=== PATIENT | female | born 1965 | race Caucasian/White ===

== ENCOUNTER 2024-09-22 16:33 | Outpatient (CLI) | payer OTHER, SELFPAY ==
[2024-09-22 16:53] LABS: Basophils Absolute Auto 0.1 K/mm3 (0.0-0.1); Basophils Percent Auto 0.9 % (0.2-1.2); Eosinophils Absolute Auto 0.2 K/mm3 (0-0.3); Eosinophils Percent Auto 2.3 % (0-4.4); Hematocrit 41.1 % (37.0-47.0); Immature Granulocyte Absolute 0.02 K/mm3 (0.00-0.031); Immature Granulocyte Percent A 0.3 % (0-0.5); Mean Corpuscular HGB Conc 31.6 g/dl (32-36); Mean Corpuscular Hemoglobin 31.3 pg (26-34); Mean Corpuscular Volume 98.8 fl (80-100); Mean Platelet Volume 11.1 fl (7.4-10.4); Monocytes Absolute Auto 0.5 K/mm3 (0.1-0.6); Monocytes Percent Auto 6.8 % (2.6-8.5); Neutrophils Absolute Auto 3.6 K/mm3 (1.3-6.7); Neutrophils Percent Auto 54.7 % (45.5-73.1); Platelet Count Result 233 k/mm3 (150-375); Red Blood Count 4.16 M/mm3 (4.2-5.4); Red Cell Distribution Width 13.6 % (11.5-14.5); White Blood Count 6.6 K/mm3 (4.5-10.0)
[2024-09-22 17:07] LABS: Add Urine Microscopic? YES; Appearance Urine Clear (Clear); Bacteria Urine None Seen /hpf; Bilirubin Urine Negative (Negative); Blood Urine Trace (Negative); Color Urine Yellow (Yellow); Glucose Urine UA Negative (Negative); Ketones Urine Negative (Negative); Leukocyte Esterase Ur Negative LEU/UL (Negative); Nitrate Urine Negative (Negative); Non Pathogenic Casts 0-2; Protein Urine Negative (Negative); Specific Grav Ur 1.017 (1.001-1.035); Squamous Epithelial Cell Urine Few /hpf (Few); Urobilinogen Urine 0.2 mg/dL (<2.0); WBC Urine 0-5 /hpf (0-3)
[2024-09-22 17:10] LABS: Anion Gap 10 mmol/L (4-12); Blood Urea Nitrogen 13 mg/dL (7-17); Carbon Dioxide 29 mmol/L (22-30); Chloride 104 mmol/L (98-107); Estimated Glomerular Filt Rate > 60; Glucose 117 mg/dL (65-110); Potassium 3.7 mmol/L (3.4-5.0); Sodium 143 mmol/L (137-145)
== END 2024-09-22 16:34 | disposition home or self-care (01) ==
LOC: ANHLAB 16:36
PROVIDERS: Visit Provider Orthopaedic Surgery
DX: R53.83 Other fatigue (principal); I10 Essential (primary) hypertension
CPT/HCPCS: 36415; 80048; 81001; 85025

== ENCOUNTER 2024-09-23 07:20 | Outpatient (CLI) | payer OTHER, SELFPAY ==
--- NOTE | 2024-09-23 08:00 | ECG_ITS ---
Test Date: 2024-09-23 08:06:22 Measurements Intervals [place] Rate: 63 P: 12 DE: 101 QRS: 54 QRSD: 91 T: 52 QT: 410 QTc: 420 Interpretive Statements SINUS RHYTHM WITH SHORT DE INTERVAL BORDERLINE ECG No previous ECG available for comparison Electronically Signed On 09-23-2024 08:07:27 CDT by Bereket Lindsay D.O.
== END 2024-09-23 07:21 | disposition home or self-care (01) ==
LOC: ANHCARD 07:22
PROVIDERS: Visit Provider Orthopaedic Surgery
DX: R53.83 Other fatigue (principal); I10 Essential (primary) hypertension; R94.31 Abnormal electrocardiogram [ECG] [EKG]
CPT/HCPCS: 93005

== ENCOUNTER 2024-09-27 13:26 | Outpatient (CLI) | payer OTHER, SELFPAY ==
[2024-09-27 15:55] LABS: Urine Cotinine NEGATIVE
[2024-09-27 16:00] LABS: Albumin Level 4.9 g/dL (3.5-5.1)
[2024-09-27 16:01] LABS: Hemoglobin A1C 5.4 % (<5.7)
[2024-09-27 16:09] LABS: Partial Thromboplastin Time 26.4 Seconds (22.3-36.8); Prothrombin Time 13.5 Seconds (11.1-14.7)
[2024-09-27 16:58] LABS: MRSA (PCR) NOT DETECTED (NOT DETECTE)
== END 2024-09-27 13:27 | disposition home or self-care (01) ==
LOC: ANHSURGERY 13:32
PROVIDERS: Visit Provider Orthopaedic Surgery
DX: M16.11 Unilateral primary osteoarthritis, right hip (principal); Z01.818 Encounter for other preprocedural examination
CPT/HCPCS: 80307; 82040; 83036; 85610; 85730; 86850; 86900; 86901; 87641

== ENCOUNTER 2024-10-04 01:41 | Day surgery (SDC) | payer OTHER, SELFPAY ==
[2024-09-27 14:09] VITALS: BP 114/57; PULSE 100; RESP 16; TEMP 37.1; O2SAT 100; BMI 26.2
--- NOTE | 2024-09-27 15:05 | PC.NURSE ---
Report to the Outpatient Waiting Room, entrance under the green pavilion located off [facility], at time _0600am on date __10/04/24 . Planned Procedure Time: 0730am .? Time changes happen often and if your time is changed the preop area will call you the afternoon before. - You and your visitor will be asked to self-screen and do not enter if you have any COVID symptoms. Please call surgeon if you need to reschedule. - A mask is optional within the hospital at this time. Patients may have clear liquids (water, carbonated beverages, clear teas, apple juice) until 3 hours prior to surgery with a maximum of 20 ounces. - No food from midnight until time of surgery and no smoking, or chewing tobacco (or any form of nicotine). No chewing gum, candy or mints.(0430am) Take only the following medications with a SIP of water on the morning of surgery: ___Tylenol if needed DO NOT STOP ANY OF YOUR OTHER PRESCRIPTION MEDICATIONS PRIOR TO SURGERY EXCEPT THE FOLLOWING Hold all vitamins and supplements for 3 days per anesthesiologist.Date to take last dose 09/30/24 Medications to discontinue per physician None Date to take last dose___None Please no make-up, nail mongolian, hairspray, perfume, deodorant, or body powder the day of surgery.? No jewelry (including any body piercings) or valuables the day of surgery, leave them at home.? Please take a shower or bath the night before, or the morning of, surgery with an antibacterial soap.? Wear comfortable, loose fitting clothing.? HIBICLEANSE SCRUB to quill picking machine operator at Pharmacy and shower with as ordered and explained. - Jewelry must be removed prior to entering the operating room.? Rings and piercings that are not removed may be cut off. - The hospital will not accept responsibility for valuables.? - Please leave all valuables, including medications, at home the day of surgery. If you are going home after surgery, a licensed tank wagon driver must drive you home.? - NO public transportation without another adult if you receive anesthesia. - We recommend that an adult stay with you for 24 hours following discharge. - We also recommend that you do not drive, make important decision, drink alcoholic beverages, or take any drugs that were not prescribed by your health care provider for at least 24 hours after your discharge time. Follow any additional instructions given to you from your surgeon. Telephone instructions given to __Patient and and asked if any additional questions and then verbalized understanding. Patient advised to call surgeon office or pre surgery nurse liaison [phone] if any additional questions.
--- NOTE | 2024-10-03 13:14 | WPDANESEPPF ---
Anes - Initial Pre Proc Eval Procedure: Operation Date: 10/04/24 07:30 Proposed Procedures p Right Total Hip Arthroplasty - Abdiel Rabago MD Date/Time: 10/03/24 13:14 Surgeon: Abdiel Rabago MD Pre Op Diagnosis: right hip djd Patient Data Age: 59 Gender: F Height: 1.65 m Weight: 71.5 kg Last Vital Signs Temp 98.7 F 09/27/24 14:09 Pulse 100 09/27/24 14:09 Resp 16 09/27/24 14:09 BP 114/57 L 09/27/24 14:09 Pulse Ox 100 09/27/24 14:09 O2 Del Method Room Air 09/27/24 14:09 Allergies Allergy/AdvReac Type Severity Reaction Status Date / Time caffeine w aspirin AdvReac swollen Uncoded 09/27/24 14:04 Home Medications ?Medication ?Instructions ?Recorded ?Confirmed ?Type chlorhexidine gluconate 4 % 1 applic topical ONCE #237 mL 09/27/24 09/27/24 Rx topical liquid (Hibiclens) Patient hx anesthesia problems: none Family hx anesthesia problems: none Results Review: All pre-operative results and documents have been reviewed as part of the pre-operative evaluation. [facility] Past Medical History Medical History Degenerative joint disease of right hip Trochanteric bursitis of left hip Surgical History Surgical History History of total left hip arthroplasty 2022- [place] Social History Social History Social History: caffeine use Smoking status: Never smoker Alcohol intake: current Substance use: never Occupation/Education: occupation Additional occupation/education comments: house Gender identity (if verbalized by the patient): Female Anes - Eval Final PreProcedure Day of Procedure 10/03/24 13:14 Patient weight: normal Heart: regular rate and rhythm Lungs: clear to auscultation Airway: Mallampati scale class II Neurological: alert and oriented Last oral intake: >/= 8 hours ASA classification: II Emergent: no Anesthetic plan: proceed Anesthesia type and monitoring: general ETT and standard monitoring Results Review: All pre-operative results and documents have been reviewed as part of the pre-operative evaluation. Informed Consent: The patient's anesthetic plan and its attendant risks and benefits were discussed with the patient/family/POA. Questions were solicited and answers provided to the satisfaction of the patient/family/POA.
[2024-10-04] VITALS (20 sets, daily range): BP systolic 96–133; BP diastolic 50–79; PULSE 57–95; RESP 10–18; TEMP 35.8–37.1; O2SAT 88–100
--- NOTE | ~2024-10-04 | XR_ITS ---
EXAMINATION: XR hip RT 1V DATE: 10/04/2024 11:23 INDICATION: Status post right total hip arthroplasty TECHNIQUE: Anteroposterior view of the right hip were obtained. COMPARISON: None. FINDINGS: Noncemented right total hip arthroplasty which appears well seated in near-anatomic alignment on sing le provided frontal projection. No fracture. Mild osteoarthritis at the right sacroiliac joint. Expec abiola small amount of soft tissue gas at the operative bed. IMPRESSION: 1. Expected appearance of a right total hip arthroplasty, negative for postoperative purposes. Reviewed, dictated and finalized at location A. IMPRESSION: 1. Expected appearance of a right total hip arthroplasty, negative for postoper ative purposes.
[2024-10-04] MEDS: TRANEXAMIC ACID 1,000MG/ISO100 1,000 MG/100 ML BAG 200 MG IVPB (07:15)
[2024-10-04] MEDS: LACTATED RINGERS 1,000 ML 30 ML IV CONT ×3 (07:15→11:34)
[2024-10-04] MEDS: ACETAMINOPHEN 500 MG TABLET 1000 MG PO (07:15)
--- NOTE | 2024-10-04 07:18 | WPDHPUPDATE1 ---
History and Physical Update Update Date/Time: 10/04/24 07:18 History and Physical has been reviewed, including an updated exam of the patient. There are NO changes in the patient's condition. Risks, benefits, and alternatives have been discussed and questions answered. Patient agrees to proceed with procedure.
[2024-10-04] MEDS: ceFAZolin 2 GM/D5W 50 ML 2 GM/50 ML BAG IVPB ×2 (07:34→16:45)
[2024-10-04] MEDS: SODIUM CHLORIDE 0.9% IV 37.7 ML, MORPHINE SULFATE INJ (*CRX) 2 MG, ROPivacaine HCL 1% 2... INFILTRATE (08:27)
[2024-10-04] MEDS: TRANEXAMIC ACID 1,000 MG/10 ML AMPUL 1000 MG IV PUSH (10:19)
[2024-10-04] MEDS: KETOROLAC 30 MG/ML VIAL (*BKC) IV PUSH (10:31)
--- NOTE | 2024-10-04 11:08 | W.PM.PROC2 ---
Procedure Note - Detailed Date of Procedure 10/04/24 Pre-op Diagnosis right hip djd Post-op Diagnosis Same Procedure Performed R [facility] WITH DUAL MOBILITY ACETABULUM Surgeon Abdiel Rabago MD Anesthesia General Description of Procedure THE PATIENT WAS TAKEN TO THE OPERATING ROOM IN STABLE CONDITION AND WAS PLACED IN THE LATERAL DECUBITUS AND THE RIGHT LOWER EXTREMITY WAS PREPPED AND DRAPED IN THE STERILE FASHION. INCISION WAS MADE IN THE POSTERIOR LATERAL SIDE OF THE HIP, DOWN TO THE FASCIA LAYER. THE FASCIA WAS INCISED. THE HIP WAS EXPOSED. THE SHORT EXTERNAL ROTATORS WERE EXPOSED. THE SCIATIC NERVE WAS IDENTIFIED. INCISION WAS MADE THROUGH THE SHORT EXTERNAL ROTATORS AND THE CAPSULE OF THE HIP JOINT. THE HIP WAS DISLOCATED. AN OSTEOTOMY WAS MADE TO THE FEMORAL NECK ABOUT 1 CM PROXIMAL TO THE LESSER TROCHANTER. THE ACETABULUM WAS EXPOSED. THERE WAS SEVERE DJD SEEN. BEGINNING WITH A 44 REAMER THE ACETABULUM WAS REAMED TO 47 MM. A 47 MM TRIAL WAS PLACED IN 35 DEG OF ABDUCTION AND ANTEVERSION WAS IN ALIGNMENT WITH THE TRANS ACETABULAR LIGAMENT. THE FIT WAS EXCELLENT. THE TRIAL WAS REMOVED. A 48 MM BIOMET G7 COMPONENT WAS THEN TAPPED IN TO PLACE IN 35 DEG OF ABDUCTION AND ANTEVERSION IN ALIGNMENT WITH THE TRANSVERSE ACETABULAR LIGAMENT. THE FIT WAS EXCELLENT. THE ACETABULAR DUAL MOBILITY LINER WAS PLACED AND CHECKED FOR STABILITY. NEXT THE FEMUR WAS PREPARED WITH INITIAL CANAL FINDER THEN SEQUENTIAL BROACHING WITH A TAPERLOC HIP SYSTEM, UNTIL A 9 BROACH FIT WELL IN 15 OF ANTEVERSION. A -3 STANDARD OFFSET NECK WITH DUAL MOBILITY BIPOLAR HEAD TRIAL WAS PLACED. THE SHUCK TEST WAS EXCELLENT AND THE STABILITY IN FLEXION AND ROTATION WAS EXCELLENT. LEG LENGTHS WERE GROSSLY EQUAL. TRIALS WERE REMOVED. A BIOMET TAPERLOC 9 STEM WAS PLACED WITH A STANDARD OFFSET NECK. THE FIT WAS EXCELLENT IN 15 DEG OF ANTEVERSION. A -3 CERAMIC HEAD AND 36 MM DUAL MOBILITY LINER WAS PLACED. THE HIP WAS TRIALED AND THE STABILITY WAS EXCELLENT WERE THE LEG LENGTHS AND THE SHUCK TEST. THE WOUND WAS IRRIGATED WITH STERILE BETADINE AND WATER FOR 3 MIN. THEN WASHED AGAIN. THE SCIATIC NERVE WAS IDENTIFIED AGAIN. THE CAPSULE AND THE EXTERNAL ROTATORS WERE APPROXIMATED WITH NUMBER 1 VICRYL. THE FASCIA WITH No 2 QUIL AND THE SUB CUTANEOUS LAYER WITH 2-0 ABSORBABLE SUTURE AND A RUNNING 3-0 SUBCUTICULAR STITCH FOR THE SKIN. DERMABOND WAS PLACED AND STERILE DRESSING WAS APPLIED. PATIENT WAS PLACED BACK ON TO THE SUPINE POSITION AND WAS EXTUBATED Estimated Blood Loss 200 Complications No immediate complications Condition Stable Disposition PACU
[2024-10-04] MEDS: fentaNYL CITRATE INJ (*CRX) 100 MCG/2 ML VIAL 25 MCG IV PUSH ×8 (11:17→12:11)
[2024-10-04] MEDS: HYDROmorphone HCL INJ (*CRX) 1 MG/ML SYR 0.5 MG IV PUSH ×2 (12:23→13:08)
[2024-10-04] MEDS: HYDROmorphone HCL INJ (*CRX) 1 MG/ML SYR IV PUSH ×2 (14:19→16:45)
--- NOTE | 2024-10-04 14:48 | PCPTNOTE ---
Attempted PT evaluation. Pt reports too much pain to transfer OOB. Pt drowsy likely from just receiving pain medication. Nursing aware. Will follow.
[2024-10-04] MEDS: ONDANSETRON INJ 4 MG/2 ML VIAL IV PUSH (16:01)
[2024-10-04] MEDS: SENNA/DOCUSATE SODIUM TABLET 2 TAB PO (16:45)
[2024-10-04] MEDS: SODIUM CHLORIDE 0.9% IV 1,000 ML 125 ML IV CONT (16:45)
[2024-10-04] MEDS: KETOROLAC 15 MG/ML VIAL (*BKC) IV PUSH (17:09)
[2024-10-04] MEDS: FAMOTIDINE 20 MG TABLET PO (21:12)
[2024-10-04] MEDS: oxyCODONE/ACETAMINOPHEN (*CRX) 5-325 MG TABLET 1 TABLET PO (21:12)
[2024-10-04] MEDS: ASPIRIN 81 MG ENTERIC TABLET PO (21:12)
[2024-10-05] MEDS: ceFAZolin 2 GM/D5W 50 ML 2 GM/50 ML BAG IVPB ×2 (01:00→10:22)
[2024-10-05] MEDS: KETOROLAC 15 MG/ML VIAL (*BKC) IV PUSH ×3 (01:00→12:14)
[2024-10-05] MEDS: SODIUM CHLORIDE 0.9% IV 1,000 ML 125 ML IV CONT (01:06)
[2024-10-05] MEDS: MELATONIN 5 MG TABLET PO (01:58)
[2024-10-05 05:00] VITALS: BP 98/60; PULSE 80; RESP 18; TEMP 36.8; O2SAT 100
[2024-10-05 06:11] LABS: Anion Gap 9 mmol/L (4-12); Blood Urea Nitrogen 13 mg/dL (7-17); Calcium 8.1 mg/dL (8.4-10.2); Carbon Dioxide 22 mmol/L (22-30); Chloride 109 mmol/L (98-107); Estimated CRCL calculation 86 ml/min; Estimated Glomerular Filt Rate > 60; Glucose 110 mg/dL (65-110); Potassium 4.4 mmol/L (3.4-5.0); Sodium 140 mmol/L (137-145)
[2024-10-05 07:27] LABS: Basophils Percent Auto 0.2 % (0.2-1.2); Hematocrit 27.2 % (37.0-47.0); Hemoglobin 8.8 g/dL (12.0-15.0); Immature Granulocyte Absolute 0.07 K/mm3 (0.00-0.031); Immature Granulocyte Percent A 0.7 % (0-0.5); Lymphocytes Absolute Auto 1.37 K/mm3 (0.9-3.2); Lymphocytes Percent Auto 12.8 % (18.3-44.2); Mean Corpuscular HGB Conc 32.4 g/dl (32-36); Mean Corpuscular Hemoglobin 31.9 pg (26-34); Mean Corpuscular Volume 98.6 fl (80-100); Mean Platelet Volume 10.6 fl (7.4-10.4); Monocytes Absolute Auto 0.9 K/mm3 (0.1-0.6); Monocytes Percent Auto 8.3 % (2.6-8.5); Neutrophils Absolute Auto 8.3 K/mm3 (1.3-6.7); Platelet Count Result 178 k/mm3 (150-375); Red Blood Count 2.76 M/mm3 (4.2-5.4); Red Cell Distribution Width 13.6 % (11.5-14.5); White Blood Count 10.7 K/mm3 (4.5-10.0)
[2024-10-05 08:00] VITALS: BP 90/62; PULSE 65; RESP 18; TEMP 35.7; O2SAT 100
[2024-10-05] MEDS: oxyCODONE/ACETAMINOPHEN (*CRX) 5-325 MG TABLET 1 TABLET PO (10:20)
[2024-10-05] MEDS: diazePAM (*CRX) 5 MG TABLET PO (10:21)
[2024-10-05] MEDS: SENNA/DOCUSATE SODIUM TABLET 2 TAB PO (10:21)
[2024-10-05] MEDS: ASPIRIN 81 MG ENTERIC TABLET PO (10:21)
[2024-10-05] MEDS: polyethylene glycoL 3350 17 GM POWD.PACK PO (10:21)
[2024-10-05] MEDS: FAMOTIDINE 20 MG TABLET PO (10:21)
--- NOTE | 2024-10-05 11:50 | PC.NURSE ---
Blood pressure 91/39. Asymptomatic. Patient reported her blood pressure runs low typically. Continue to monitor.
[2024-10-05 12:00] VITALS: BP 92/48; PULSE 68; RESP 18; TEMP 36.9; O2SAT 97
--- NOTE | 2024-10-05 13:53 | P.PNOP_ITS ---
Progress Note: A&P Assessment and Plan (1) Degenerative joint disease of right hip: Code(s): M16.11 - Unilateral primary osteoarthritis, right hip Status: Acute Assessment and Plan: POD 1 DOING WELL. GOOD PROGRESS WITH PT. OK TO DC HOME F/U IN 3 WEEKS Subjective Subjective Date/Time Seen: 10/05/24 13:53 Interval history: POD 1 DOING WELL. PAIN IMPROVED. GOOD PROGRESS WITH PT. NO CALF PAIN Exam Extrem: Other: VSS AFEBRILE DRESSING DRY NV INTACT NEG HOMANS SIGN CALF AND THIGH NON TENDER Objective Data Vital Signs Vital Signs: Vital Signs - 24 hr 10/04/24 13:55 10/04/24 14:25 10/04/24 15:25 Temperature 36.1 C L 35.8 C L 35.8 C L Pulse Rate 77 70 74 Respiratory Rate 16 16 Blood Pressure 118/50 L 104/59 L 107/58 L Pulse Oximetry 98 97 100 Oxygen Delivery Oxygen Flow Rate 10/04/24 16:02 10/04/24 19:10 10/04/24 21:10 Temperature 36.4 C Pulse Rate 70 Respiratory Rate 18 Blood Pressure 96/51 L Pulse Oximetry 97 100 97 Oxygen Delivery Nasal Cannula Nasal Cannula Oxygen Flow Rate 1 2 10/04/24 23:10 10/05/24 05:00 10/05/24 07:43 Temperature 37.1 C 36.8 C Pulse Rate 73 80 Respiratory Rate 18 18 Blood Pressure 101/61 98/60 L Pulse Oximetry 100 100 Oxygen Delivery Room Air Oxygen Flow Rate 10/05/24 08:00 10/05/24 08:00 10/05/24 10:26 Temperature 35.7 C L Pulse Rate 65 Respiratory Rate 18 Blood Pressure 90/62 L Pulse Oximetry 100 Oxygen Delivery Room Air Room Air Oxygen Flow Rate 10/05/24 12:00 Temperature 36.9 C Pulse Rate 68 Respiratory Rate 18 Blood Pressure 92/48 L Pulse Oximetry 97 Oxygen Delivery Oxygen Flow Rate Intake/Output Intake/Output: Intake & Output 10/02/24 10/03/24 10/04/24 10/05/24 23:59 23:59 23:59 23:59 Intake Total 800 2630 Balance 800 2630 Meds/Results Medications: Active Medications Generic Name Dose Route Start Last Admin Trade Name Freq PRN Reason Stop Dose Admin Acetaminophen 500 mg 10/04/24 13:25 Acetaminophen 500 Mg Tablet PO Q6H PRN Pain Rated 1-3 Aspirin 81 mg 10/04/24 21:00 10/05/24 10:21 Aspirin 81 Mg Enteric Tablet PO 81 mg Q12HR CAMRON Administration Diazepam 5 mg 10/04/24 13:25 10/05/24 10:21 Diazepam (*Crx) 5 Mg Tablet PO 5 mg Q6H PRN Administration Anxiety/Muscle Spasm Diphenhydramine HCl 25 mg 10/04/24 13:25 Diphenhydramine Hcl Inj 50 Mg/Ml Vial IV PUSH Q6H PRN Itching Famotidine 20 mg 10/04/24 21:00 10/05/24 10:21 Famotidine 20 Mg Tablet PO 20 mg Q12HR CAMRON Administration Hydromorphone HCl 1 mg 10/04/24 13:25 10/04/24 16:45 Hydromorphone Hcl Inj (*Crx) 1 Mg/Ml Syr IV PUSH 1 mg Q2H PRN Administration Breakthrough Pain Rated 7-10 or NPO Hydromorphone HCl 0.5 mg 10/04/24 13:25 Hydromorphone Hcl Inj (*Crx) 1 Mg/Ml Syr IV PUSH Q2H PRN Breakthrough Pain Rated 4-6 or NPO Ibuprofen 800 mg in 200 mls @ 400 mls/hr 10/04/24 13:25 Caldolor 800 Mg/200 Ml IVPB Q6H PRN Breakthrough Pain Rated 1-3 or NPO Ketorolac Tromethamine 15 mg 10/04/24 18:00 10/05/24 12:14 Ketorolac 15 Mg/Ml Vial (*Bkc) IV PUSH 10/05/24 18:01 15 mg Q6HR CAMRON Administration Melatonin 5 mg 10/05/24 01:39 10/05/24 01:58 Melatonin 5 Mg Tablet PO 5 mg HS PRN Administration Insomnia Naloxone HCl 0.1 mg 10/04/24 13:25 Naloxone Hcl 0.4 Mg/Ml Vial IV PUSH Q2M PRN Opiate Reversal Ondansetron HCl 4 mg 10/04/24 13:25 10/04/24 16:01 Ondansetron Inj 4 Mg/2 Ml Vial IV PUSH 4 mg Q4H PRN Administration Nausea And Vomiting Oxycodone/Acetaminophen 1 tablet 10/04/24 13:25 10/05/24 10:20 Oxycodone/Acetaminophen (*Crx) 5-325 Mg Tablet PO 1 tablet Q4H PRN Administration Pain Rated 4-6 Oxycodone/Acetaminophen 1 tab 10/04/24 13:25 Oxycodone/Acetaminophen (*Crx) 10-325 Mg Tablet PO Q6H PRN Pain Rated 7-10 Polyethylene Glycol 17 gm 10/05/24 09:00 10/05/24 10:21 Polyethylene Glycol 3350 17 Gm Powd.Pack PO 17 gm QAM CAMRON Administration Senna/Docusate Sodium 2 tab 10/04/24 17:00 10/05/24 10:21 Senna/Docusate Sodium Tablet PO 2 tab BID CAMRON Administration Radiology Results: ITS Impressions Hip X-Ray 10/04/24 11:40 IMPRESSION: 1. Expected appearance of a right total hip arthroplasty, negative for postoperative purposes. Labs Labs: Laboratory Results - last 24 hr 10/05/24 10/05/24 05:37 07:22 WBC 10.7 H RBC 2.76 L Hgb 8.8 L D Hct 27.2 L MCV 98.6 MCH 31.9 MCHC 32.4 RDW 13.6 Plt Count 178 MPV 10.6 H Immature Gran % (Auto) 0.7 H Neut % (Auto) 78.0 H Lymph % (Auto) 12.8 L Faulk % (Auto) 8.3 Eos % (Auto) 0.0 Baso % (Auto) 0.2 Lymph # (Auto) 1.37 Faulk # (Auto) 0.9 H Eos # (Auto) 0.0 Baso # (Auto) 0.0 Abs Immat Gran (auto) 0.07 H Absolute Neuts (auto) 8.3 H Absolute Nucleated RBC 0.000 Nucleated RBC % 0.0 Sodium 140 Potassium 4.4 Chloride 109 H Carbon Dioxide 22 Anion Gap 9 BUN 13 Creatinine 0.53 L Estim Creat Clear Calc 86 Estimated GFR > 60 Glucose 110 Calcium 8.1 L
== END 2024-10-05 16:20 | disposition home health service (06) ==
LOC: ANHSURGERY 12:33 → ANH3MEDSUR 10-05 13:25
PROVIDERS: Visit Provider Orthopaedic Surgery
PROC: (CPT 27130; principal; 2024-10-04 07:30)
DX: M16.11 Unilateral primary osteoarthritis, right hip (principal); Z96.642 Presence of left artificial hip joint
CPT/HCPCS: 27130; 36415; 73501; 80048; 85025; 97110; 97161; 97165; 97530; 97535; A9270; C1713; J0171; J0690; J1100; J1171; J1885; J2003; J2250; J2270; J2405; J2704; J2795; J3010; J7030; J7120